=== PATIENT | female | born 1950 | race Caucasian/White ===

== ENCOUNTER 2018-02-24 08:32 | Day surgery (SDC) | payer MEDICARE ==
[~2018-02-24] VITALS: Ht 157.5 cm; Wt 88.5 kg
[~2018-02-24 08:32] MED LIST: BUDE10.22 INH; CHOL10002 PO; ESCI20 PO; GABA600 PO; Hair, Skin & N1 EACH PO; IBUP400 PO; Icaps Tablet1 EACH PO; LATANOPROST 0.7.5 ML BOTHEYES; LEVSOD100 PO; METO100ER PO; NAPR220 PO; Omeprazole20 M1 PO; TOPI25 PO; TRAZ50 PO
[2018-02-27 04:09] LABS: ENDOMYSIAL ANTIBODY IGA Negative (Negative); T-TRANSGLUTAMINASE (TTG) IGA <2 U/mL (0-3)
== END 2018-02-24 11:04 | disposition home or self-care (01) ==
LOC: ORSCMMR 08:32 → ORD 09:30 → ORSCMMR 11:04
PROVIDERS: Internal Medicine Gastroenterology
PROC: 0DB68ZX Excision of Stomach, Via Natural or Artificial Opening Endoscopic, Diagnostic (ICD-10-PCS; principal; 2018-02-24 09:30)
PROC: 0DBH8ZX Excision of Cecum, Via Natural or Artificial Opening Endoscopic, Diagnostic (ICD-10-PCS; principal; 2018-02-24 09:30)
PROC: 0DBL8ZX Excision of Transverse Colon, Via Natural or Artificial Opening Endoscopic, Diagnostic (ICD-10-PCS; principal; 2018-02-24 09:30)
PROC: 0DB98ZX Excision of Duodenum, Via Natural or Artificial Opening Endoscopic, Diagnostic (ICD-10-PCS; principal; 2018-02-24 09:30)
PROC: 0DBN8ZX Excision of Sigmoid Colon, Via Natural or Artificial Opening Endoscopic, Diagnostic (ICD-10-PCS; principal; 2018-02-24 09:30)
PROC: 0DBK8ZX Excision of Ascending Colon, Via Natural or Artificial Opening Endoscopic, Diagnostic (ICD-10-PCS; principal; 2018-02-24 09:30)
DX: R19.7 Diarrhea, unspecified (principal); K29.70 Gastritis, unspecified, without bleeding; D12.0 Benign neoplasm of cecum; D12.2 Benign neoplasm of ascending colon; K57.30 Diverticulosis of large intestine without perforation or abscess without bleeding; Z86.010 Personal history of colon polyps; E11.9 Type 2 diabetes mellitus without complications; I10 Essential (primary) hypertension; F32.9 Major depressive disorder, single episode, unspecified; E03.9 Hypothyroidism, unspecified; K21.9 Gastro-esophageal reflux disease without esophagitis; Z79.899 Other long term (current) drug therapy
CPT/HCPCS: 36415; 82784; 82947; 86255; 88305; 88342; J7120

== ENCOUNTER 2018-11-20 08:53 | Day surgery (SDC) | payer MEDICARE ==
[2018-11-20 09:28] LABS: BASOPHILS ABSOLUTE AUTO 0.02 K/mm3 (0.00-0.23); BASOPHILS PERCENT AUTO 0 % (0-2); EOSINOPHILS ABSOLUTE AUTO 0.04 K/mm3 (0.00-0.68); EOSINOPHILS PERCENT AUTO 0 % (0-6); Hematocrit 41.6 % (33.0-51.0); Hemoglobin 12.9 g/dL (11.5-16.0); IMMATURE GRAN ABSOLUTE AUTO 0.07 K/mm3 (0.00-0.10); IMMATURE GRAN PERCENT AUTO 1 % (0-1); LYMPHOCYTES ABSOLUTE AUTO 3.38 K/mm3 (0.84-5.20); LYMPHOCYTES PERCENT AUTO 34 % (21-46); MONOCYTES ABSOLUTE AUTO 0.64 K/mm3 (0.16-1.47); MONOCYTES PERCENT AUTO 6 % (4-13); Mean Corpuscular HGB 30.1 pg (26.0-34.0); Mean Corpuscular Volume 97 fL (80-100); Mean Platelet Volume 9.3 fL (9.1-12.4); NEUTROPHILS ABSOLUTE AUTO 5.85 K/mm3 (1.96-9.15); NEUTROPHILS PERCENT AUTO 59 % (41-73); Platelet Count 189 K/mm3 (150-400); RDW Coefficient Variation 12.8 % (11.7-14.2); RDW Standard Deviation 45.5 fL (35.1-46.3); Red Blood Cell Count 4.28 M/mm3 (3.80-5.20)
--- NOTE | 2018-11-20 10:35 | NUR ---
[facility] FROM [facility]IOLOGY. [facility] REPORTS SOME COMPLICATIONS DURING PROCEDURE WHERE SHE DEVELOPED SUDDEN SEVERE PAIN ACCROSS TOP OF ABDOMEN WITH BIOPSY. RATES PAIN BETTER, /10. [facility] REPORTS KNOWN INTERNAL BLEED AFTER XRAY DONE IN RADIOLOGY. VITALS STABLE. NO DRESSING OR BANDIAD TO ASSUMED PUNCTURE SITE ON RIGHT UPPER ABDOMEN. NO EVIDENCE OF HEMATOMA , NO BLEEDING FROM SITE
--- NOTE | 2018-11-20 12:24 | NUR ---
DR ELAM IN TO SEE PATIENT, REPORTS PATIENT OKAY FOR DISCHARGE POST PROCEDURE. DISCHARGE INSTRUCTIONS GIVEN EARLIER, REPORTS PAIN 5/10. PATIENT DECLINES NEED FOR PAIN MEDICATION SCRI[T AT HOME, STATES SHE CAN MANAGE IT WITH ALLOWABLE [facility] AT HOME. DISCUSSED WITH DR. ELAM HER PLAN TO TAKE IBUPROFREN POST PROCEDURE. PT OUT VIA W/C WITH SPOUSE
== END 2018-11-20 22:48 | disposition home or self-care (01) ==
LOC: LAB 08:53 → US 08:53
PROVIDERS: Student in an Organized Health Care Education/Training Program
DX: K74.60 Unspecified cirrhosis of liver (principal); K76.0 Fatty (change of) liver, not elsewhere classified; E11.9 Type 2 diabetes mellitus without complications; I10 Essential (primary) hypertension; J44.9 Chronic obstructive pulmonary disease, unspecified; Z79.899 Other long term (current) drug therapy
CPT/HCPCS: 36415; 47000; 71045; 76942; 85025; 85730

== ENCOUNTER → 2019-05-18 | Outpatient (CLI) | payer MEDICARE | END | disposition home or self-care (01) | LOC: PLD 14:16 → LAB SHORT 14:16 | DX: R16.2 Hepatomegaly with splenomegaly, not elsewhere classified (principal); K83.8 Other specified diseases of biliary tract; K57.30 Diverticulosis of large intestine without perforation or abscess without bleeding; K63.89 Other specified diseases of intestine; I70.0 Atherosclerosis of aorta; J84.10 Pulmonary fibrosis, unspecified; J98.11 Atelectasis; J92.9 Pleural plaque without asbestos; Z98.890 Other specified postprocedural states | CPT/HCPCS: 88305 ==

== ENCOUNTER → 2019-09-07 | Outpatient (CLI) | payer MEDICARE ==
[2019-09-07 14:59] LABS: Microalb/Creat Ratio UR, Rand 7.347 mg/g (0.000-30.000); Microalbumin, Random Urine 10.8 mg/L (0.000-20.000)
== END | disposition home or self-care (01) ==
LOC: LAB SHORT 13:00 → LAB 13:00
PROVIDERS: Nurse Practitioner Family
DX: E11.9 Type 2 diabetes mellitus without complications (principal)
CPT/HCPCS: 82043; 82570

== ENCOUNTER 2019-11-29 08:51 | Day surgery (SDC) | payer MEDICARE | END 2019-11-30 23:15 | disposition home or self-care (01) | LOC: RAD 08:51 → CT 10:00 → RAD 11-30 23:15 | DX: M23.92 Unspecified internal derangement of left knee (principal); M17.12 Unilateral primary osteoarthritis, left knee | CPT/HCPCS: 20610; 73701; 77002; Q9967 ==

== ENCOUNTER → 2020-01-18 | Outpatient (CLI) | payer MEDICARE ==
[2020-01-18 15:59] LABS: Bilirubin, Urine Neg (Neg); Blood, Urine 1+ (Neg); Glucose Qualitative, Urine Neg (Neg); Ketones, Urine Neg (Neg); Leukocyte Esterase, Urine 1+ (Neg); Nitrite, Urine Neg (Neg); Protein, Urine Neg (Neg); Urobilinogen, Urine NORM (Normal)
[2020-01-18 16:07] LABS: Appearance, Urine Clear (Clear); Color, Urine Yellow (P-Yellow)
[2020-01-18 16:10] LABS: Bacteria Rare /hpf; Red Blood Cells, Urine 0-2 /hpf (0-2); Squamous Epithelial Cells Few /hpf (Few)
[2020-01-19 09:03] LABS: Candida species (DNA Probe) Negative (NEGATIVE); G. vaginalis (DNA Probe) Negative (NEGATIVE); T. vaginalis (DNA Probe) Negative (NEGATIVE)
[2020-01-21 14:10] LABS: HPV 16 Negative (Negative); HPV 18 Negative (Negative); HPV OTHER HR TYPES Negative (Negative)
== END | disposition home or self-care (01) ==
LOC: LAB SHORT 14:47 → LAB 14:47
PROVIDERS: Nurse Practitioner Family
DX: R30.0 Dysuria (principal); R31.0 Gross hematuria; R10.2 Pelvic and perineal pain
CPT/HCPCS: 81001; 87086; 87480; 87510; 87624; 87660; G0145

== ENCOUNTER → 2022-05-21 | Outpatient (CLI) | payer MEDICARE ==
[~2022-05-21] MED LIST changes: +ALBU8HFA2 INH; +COMBIVENT RESPIM4 G1 INH; +FISH OIL 1,2001 EAC7; +FLUT.05NI; +FURO20 PO; +LEVSOD75 PO; +MAGNESIUM OXID500 MG PO; +METF500 PO; +MONT10T PO; +SYMBICORT 160-4.6 GM INH; +TIZA4 PO; +TOPI50 PO
== END | disposition home or self-care (01) ==
LOC: LAB SHORT 11:57 → PLD 11:57
DX: D04.0 Carcinoma in situ of skin of lip (principal)
CPT/HCPCS: 88305

== ENCOUNTER 2023-04-23 08:40 | Day surgery (SDC) | payer MEDICARE ==
[2023-04-23] VITALS (15 sets, daily range): BP systolic 90–135; BP diastolic 41–71
[~2023-04-23] VITALS: Ht 157.5 cm; Wt 87.0 kg
--- NOTE | 2023-04-23 09:27 | NUR ---
04/23/23 0927 Joceline Brown HISTORY, CHART, MEDICATIONS AND ALLERGIES REVIEWED BEFORE START OF PROCEDURE. PATIENT CONFIRMS NPO STATUS AND AGREES WITH SCHEDULED PROCEDURE. 3-LEAD EKG REVIEWED WITH PHYSICIAN PRIOR TO START OF PROCEDURE. MONITOR INTACT WITH CONTINUOUS PULSE OXIMETRY,CAPNOGRAPHY, 3-LEAD EKG, INTERMITTENT BP. SUPPLEMENTAL O2 TO BE TITRATED THROUGHOUT PROCEDURE TO MAINTAIN O2 SATURATION ABOVE 90%. PATIENT DETERMINED TO BE ASA APPROPRIATE FOR PROPOFOL SEDATION PRIOR TO START OF PROCEDURE BY .
--- NOTE | 2023-04-23 10:24 | NUR ---
Discharge instructions reviewed with patient. Patient verbalizes understanding. Copy given to patient to take home. Patient States Post-Procedure ride home has been arranged. Discharged via wheelchair to private car for ride home.
== END 2023-04-23 10:23 | disposition home or self-care (01) ==
LOC: ORSCMMR 08:40 → ORD 09:30 → ORSCMMR 09:30
PROVIDERS: Internal Medicine Gastroenterology
PROC: 0DBK8ZX Excision of Ascending Colon, Via Natural or Artificial Opening Endoscopic, Diagnostic (ICD-10-PCS; principal; 2023-04-23 09:30)
DX: R10.31 Right lower quadrant pain (principal); Z86.010 Personal history of colon polyps; D12.2 Benign neoplasm of ascending colon; I10 Essential (primary) hypertension; K76.0 Fatty (change of) liver, not elsewhere classified; E11.9 Type 2 diabetes mellitus without complications; J44.9 Chronic obstructive pulmonary disease, unspecified; E03.9 Hypothyroidism, unspecified; K21.9 Gastro-esophageal reflux disease without esophagitis; F32.A Depression, unspecified; E78.00 Pure hypercholesterolemia, unspecified; Z79.82 Long term (current) use of aspirin; Z79.84 Long term (current) use of oral hypoglycemic drugs; Z79.899 Other long term (current) drug therapy
CPT/HCPCS: 82947; 88305; J2704; J7120

== ENCOUNTER → 2024-02-20 | Outpatient (CLI) | payer MEDICARE ==
[2024-02-21 13:06] LABS: Stool Occult Bld Immuno 1 Positive (NEGATIVE)
== END | disposition home or self-care (01) ==
LOC: LAB SHORT 14:51 → LAB 14:51
PROVIDERS: Student in an Organized Health Care Education/Training Program
DX: D64.9 Anemia, unspecified (principal)
CPT/HCPCS: 82274